=== PATIENT | female | born 1995 | race African-American/Black ===

== ENCOUNTER 2017-05-03 21:21 | Emergency (ER) | payer OTHER ==
[~2017-05-03] VITALS: Ht 157.5 cm; Wt 50.0 kg
[2017-05-03] MEDS ORDERED: LIDOCAINE 1% MDV 20ML VIAL As Ordered ONE (22:26)
[2017-05-03 23:02] VITALS: BP 124/76
== END 2017-05-03 23:05 | disposition home or self-care (01) ==
LOC: M ED 22:38
DX: S61.412A Laceration without foreign body of left hand, initial encounter (principal); W26.8XXA Contact with other sharp object(s), not elsewhere classified, initial encounter; Y92.099 Unspecified place in other non-institutional residence as the place of occurrence of the external cause; Y93.89 Activity, other specified; Y99.9 Unspecified external cause status

== ENCOUNTER 2017-06-19 22:13 | Emergency (ER) | payer OTHER ==
[~2017-06-19] VITALS: Ht 157.5 cm; Wt 50.4 kg
[2017-06-20] MEDS ORDERED: ADACEL/BOOSTRIX VACCINE (DIPHTH/PERTUSS/ACELL/TETANUS)0.5ML SYR (90715) IM ONE (01:00)
[2017-06-20 01:37] VITALS: BP 119/77
== END 2017-06-20 01:38 | disposition home or self-care (01) ==
LOC: M ED 22:13
DX: S61.216A Laceration without foreign body of right little finger without damage to nail, initial encounter (principal); W29.0XXA Contact with powered kitchen appliance, initial encounter; Y92.090 Kitchen in other non-institutional residence as the place of occurrence of the external cause; Y93.89 Activity, other specified; Y99.9 Unspecified external cause status